=== PATIENT | female | born 1965 | race American Indian/Alaskan Native ===

== ENCOUNTER 2022-01-13 21:41 | Emergency (ER) | payer SELFPAY ==
[2022-01-13 21:55] VITALS: BP 167/90
== END 2022-01-13 23:00 | disposition left against medical advice (07) ==
LOC: ED 21:41
DX: R06.02 Shortness of breath (principal); R09.81 Nasal congestion; Z53.21 Procedure and treatment not carried out due to patient leaving prior to being seen by health care provider